=== PATIENT | female | born 1965 ===

== ENCOUNTER 2025-06-28 06:50 | Emergency (ER) | payer OTHER, SELFPAY ==
[2025-06-28 07:35] VITALS: BP 140/85; PULSE 66; RESP 20; TEMP 36.6; O2SAT 95; BMI 34.9
[2025-06-28 07:42] VITALS: BP 140/85; PULSE 66; RESP 20; TEMP 36.6; O2SAT 95
--- NOTE | 2025-06-28 07:43 | PC.NURSE ---
Patient presents to ED c/o of feeling unbalanced being lightheaded on postural changes but still feels it at rest. Patient reports hitting head on car pillar about a week ago. Denies LOC, dizziness, pain, vision changes, SOB, recent illness. Patient hit right parietal lobe on head no deformoty noted no bruising noted, no tenderness. Denies thinners. at bedside. VSS. Provider in to see patient. Plan of care on going
[2025-06-28 08:09] LABS: MANUAL DIFF FLAG NO
[2025-06-28 08:19] LABS: Hematocrit 42.9 % (37.0-47.0); Hemoglobin 15.2 g/dl (12.0-16.0); Imm Gran Abs Auto 0.02 X10*3/uL (0.00-0.03); Imm Gran Pct Auto 0.3 % (0.0-0.4); Lymphocytes Absolute Auto 1.1 X10*3/uL (1.2-4.9); Mean Corpuscular HGB Conc 35.4 g/dl (31.0-35.0); Mean Corpuscular Hemoglobin 30.0 pg (27.0-33.0); Mean Corpuscular Volume 84.6 fL (80.0-98.0); NRBC Abs Auto 0.000 X10*3/uL (0.0-0.012); NRBC Pct Auto 0.0 /100WBC (0.0-0.2); Platelet Count 183 X10*3/uL (160-400); Red Blood Count 5.07 X10*6/uL (4.20-5.50); White Blood Count 6.2 X10*3/uL (4.8-10.8)
[2025-06-28 08:37] LABS: Troponin-I High Sensitivity < 2.7 ng/L (<3.5-17.0)
--- NOTE | 2025-06-28 08:46 | ED_ITS ---
HPI - General Adult General Chief complaint: General Medical Stated complaint: off balance Time Seen by Provider: 06/28/25 07:05 Source: patient Mode of arrival: ambulatory Limitations: no limitations History of Present Illness ED Provider: HPI narrative: 59-year-old woman, remote history of vertigo for the past 4 or 5 days has not been feeling herself, fuzzy head, nausea, feeling unsteady, no chest pain or shortness of breath no abdominal pain, no fevers or chills no dysuria, no rectal bleeding. No weakness in upper or lower extremities, no sensory deficits. No vision changes Related Data Previous Rx's ?Medication ?Instructions ?Recorded meclizine 25 mg tablet 25 mg PO Q6-8H PRN dizziness 3 06/28/25 days #14 tabs ondansetron 4 mg disintegrating 4 mg PO Q8H PRN nausea and 06/28/25 tablet vomiting #4 tabs scopolamine base 1 mg over 3 days 1 patch transdermal Q3D PRN 06/28/25 transdermal patch vertigo 7 days #4 ea Allergies Allergy/AdvReac Type Severity Reaction Status Date / Time sulfamethoxazole (From Allergy Anxiety Verified 06/28/25 07:36 Bactrim) trimethoprim (From Bactrim) Allergy Anxiety Verified 06/28/25 07:34 Review of Systems 2 Constitutional: Constitutional: Reports as per [facility] Social History Social History Smoked in Last 30 Days: No Use of substances other than those prescribed or required for medical reasons: No Advance Directives: No Advance Directives Information Provided: Yes Do you have a plan to hurt others: No Plan Patient : No Physical Exam ED Vital Signs: Vital Signs - 24 hr 06/28/25 07:35 06/28/25 07:42 06/28/25 08:54 Temperature 97.8 F 97.8 F 97.7 F Pulse Rate 66 66 82 Respiratory Rate 20 20 16 Blood Pressure 140/85 H 140/85 H 139/92 H Pulse Oximetry 95 95 98 Oxygen Delivery Method Room Air Room Air BMI result Body Mass Index 34.9 Const Other: * Gen: ?Overall well-appearing patient * HEENT: PERRLA, EOMI, MMM, no ear impaction * Neck: Supple, no LAD * CV: RRR, no obvious murmurs appreciated * Resp: ?No wheezing rales rhonchi no stridor moving air well * Abd: ?Bowel sounds are present, no tenderness no rebound no rigidity * MSK: FROM, strength 5/5 all extremities * Skin: Warm, dry, intact, * Neuro: ?Alert and oriented x3, moving upper and lower extremities symmetrically, no obvious facial asymmetry noted, right-sided horizontal nystagmus without rotary or vertical component, no dysmetria upper or lower extremities Medications Administered Discontinued Medications Generic Name Dose Route Start Last Admin Trade Name Trino PRN Reason Stop Dose Admin Diazepam 2 mg 06/28/25 07:38 06/28/25 08:57 Diazepam 2 Mg Tablet PO 06/28/25 07:39 2 mg ONCE ONE Administration Sodium Chloride 1,000 mls @ 999 mls/hr 06/28/25 07:45 06/28/25 08:01 Ns IV 06/28/25 08:45 999 mls/hr .Q1H1M PRAFUL Administration Meclizine HCl 25 mg 06/28/25 07:38 06/28/25 08:57 Meclizine Hcl 25 Mg Tablet PO 06/28/25 07:39 25 mg ONCE ONE Administration Ondansetron HCl 4 mg 06/28/25 07:38 06/28/25 08:57 Ondansetron Hcl 4 Mg/2 Ml Vial IVPUSH 06/28/25 07:39 4 mg ONCE ONE Administration Scopolamine 1.5 mg 06/28/25 07:38 06/28/25 08:57 Scopolamine 1.5 Mg Patch.Td.3 EAR-BEHIND 06/28/25 07:39 1.5 mg ONCE ONE Administration Medical Decision Making Medical Decision Making [facility] Narrative: No evidence that patient is presenting with cerebellar stroke, right-sided nystagmus is noted, we will make sure to workup for cardiac issues as can be quite a typical presentation in females, we will obtain EKG and troponin, we will medicate we will re-evaluate, disposition to be determined 10:00 patient re-evaluated, she is feeling better we will the planning for discharge Differential Diagnosis Differential Diagnoses: The differential diagnosis associated with the presentation includes (Cerebellar stroke, BPPV, ACS, dehydration, electrolyte derangements) Admission/Observation Consideration of admission/observation: Escalation of care including admission/observation considered 2022 Emergency Medicine Coding Guide from [employer] on 06/28/2025 All calculations should be rechecked by clinician prior to use RESULT SUMMARY: 5 Estimated Level of Service Problems: Moderate (4) Risk: High (5) Data: Extensive (5) NARRATIVE MDM: This patient's problem complexity is Moderate as patient: with chronic illness(es) with exacerbation/progression/side effects of treatment. This patient's risk is High due to: overall presentation requiring evaluation for a potentially High-risk process. This patient's data complexity is Extensive due to: -multiple tests ordered -independent interpretation of imaging or EKG INPUTS: Number and Complexity ?> 3 = 4: chronic illness with exacerbation (c) Risk level ?> 4 = High Tests ordered ?> 2 = 2 Tests results reviewed (excluding labs) ?> 1 = 1 Prior external notes reviewed ?> 0 = 0 Assessment requiring and independent historian ?> 0 = No Independent interpretation of tests ?> 1 = Yes Discussed management/test interpretation w/external professional ?> 0 = No Lab Data MDM Lab Attestation statement: I reviewed the patient's lab results. 06/28/25 08:00 06/28/25 09:07 Labs: Lab Results 06/28/25 06/28/25 06/28/25 Range/Units 07:59 08:00 09:07 WBC 6.2 (4.8-10.8) X10*3/uL RBC 5.07 (4.20-5.50) X10*6/uL Hgb 15.2 (12.0-16.0) g/dl Hct 42.9 (37.0-47.0) % MCV 84.6 (80.0-98.0) fL MCH 30.0 (27.0-33.0) pg MCHC 35.4 H (31.0-35.0) g/dl RDW 12.3 (11.0-16.0) % Plt Count 183 (160-400) X10*3/uL MPV 9.7 (9.4-12.3) fL Immature Gran % (Auto) 0.3 (0.0-0.4) % Neut % (Auto) 75.7 H (45-73) % Lymph % (Auto) 17.2 L (20-40) % [place] % (Auto) 5.7 (2-11) % Eos % (Auto) 0.6 (0-4) % Baso % (Auto) 0.5 (0-2) % Lymph # (Auto) 1.1 L (1.2-4.9) X10*3/uL [place] # (Auto) 0.4 (0.1-1.2) X10*3/uL Eos # (Auto) 0.0 (0.0-0.4) X10*3/uL Baso # (Auto) 0.0 (0.0-0.2) X10*3/uL Abs Immat Gran (auto) 0.02 (0.00-0.03) X10*3/uL Absolute Neuts (auto) 4.7 (2.0-8.3) x10*3/uL Absolute Nucleated RBC 0.000 (0.0-0.012) X10*3/uL Nucleated RBC % (auto) 0.0 (0.0-0.2) /100WBC Sodium 142 (135-145) mmol/L Potassium 4.0 (3.3-5.1) mmol/L Chloride 110 H (96-108) mmol/L Carbon Dioxide 24 (22-29) mmol/L Anion Gap 12 (12-20) BUN 16 (9-16) mg/dL Creatinine 0.69 (0.5-1.4) mg/dL Estim Creat Clear Calc 100.1 Estimated GFR > 60 Random Glucose 100 (60-115) mg/dL Calcium 8.8 (8.4-10.2) mg/dL Total Bilirubin 1.1 H (0.0-1.0) mg/dL AST 28 (5-31) U/L ALT 28 (0-31) U/L Alkaline Phosphatase 50 (39-117) U/L Troponin I High Sens < 2.7 (<3.5-17.0) ng/L Total Protein 6.8 (6.5-8.0) g/dL Albumin 4.2 (3.5-5.0) g/dL Tests considered The following testing was considered but not selected: CT brain Discharge Plan Discharge Clinical Impression: Benign paroxysmal positional vertigo of right ear Patient Disposition: Home, Self-Care Instructions: Vertigo (ED) Additional Instructions: Your examination is consistent with vertigo, your workup included EKG, blood work, physical examination, vital signs all of which has been reassuring Continue with meclizine as needed, scopolamine is a patch keep it in place for 3 days Follow up with the PCP Any other issues concerns come back to the ER Zofran as needed for nausea and vomiting Prescriptions: New meclizine 25 mg tablet 25 mg PO Q6-8H PRN (Reason: dizziness) 3 Days Qty: 14 0RF ondansetron 4 mg tablet,disintegrating 4 mg PO Q8H PRN (Reason: nausea and vomiting) Qty: 4 0RF scopolamine base 1 mg over 3 days patch 3 day 1 patch transdermal Q3D PRN (Reason: vertigo) 7 Days Qty: 4 0RF Print Language: French
[2025-06-28 08:54] VITALS: BP 139/92; PULSE 82; RESP 16; TEMP 36.5; O2SAT 98
--- OUTSIDE RECORDS SUMMARY | 2025-06-28 09:28 | XMS_ITS | Clinical Summary ---
Author Organization [facility] Address [address] [place] [phone] Phone Care Team Providers Care Apprentice/Lineman Name Role Phone Mason Lucas MD Primary Care Provide r Allergies Active Allergy Reactions Criticality Noted Date Comments Sulfamethoxazole-Trimethoprim Anxiety Low 2021 Other Itching 08/08/2022 Powder in gloves Medications atorvastatin (LIPITOR) 20 MG tablet Take 20 mg by mouth daily. Active levothyroxine (SYNTHROID, LEVOTHROID) 125 MCG tablet Take 125 mcg by mouth every morning. Active cyanocobalamin, vitamin B-12, 1000 MCG tablet Take 1,000 mcg by mouth daily. Active cholecalciferol (VITAMIN D3) 25 MCG (1,000 unit) tablet Take 1,000 Units by mouth daily. Active psyllium (METAMUCIL) Powd Take 1 teaspoonful by mouth daily. 3 g = 1 teaspoonful (5 mL) Active Social History Tobacco Use Types Packs/Day Years Used Date Smoking Tobacco: Former Cigarettes Smokeless Tobacco: Never Comments:quit smoking 16 yrs ago Alcohol Use Standard Drinks/Week Comments Yes 0 (1 standard drink = 0.6 oz pur e alcohol) rarely Education Answer Date Recorded Are you interested in more education? Not on barney e 03/28/2023 Are you concerned about learning? Not on file 03/28/2023 No 03/28/2023 No 03/28/2023 Digital Access Answer Date Recorded No 04/26/2023 No 04/26/2023 No 04/26/2023 Reliable internet access at home? Not on file 04/26/2023 Device with a working camera? Not on file Comments No Sex and Gender Information Value Date Recorded Sex Assigned at Not on file Legal Sex Female 2:39 PM EDT Gender Identity Not on file Sexual Orientation Not on file Last Filed Vital Signs Vital Sign Reading Time Taken Comments Blood Pressure 129/90 08/11/2022 12:10 PM EDT Pulse 60 08/11/2022 12:10 PM EDT Temperature 35.9 C (96.7 F) 08/11/2022 11:55 AM EDT Respiratory Rate 16 08/11/2022 10:33 AM EDT Oxygen Saturation 99% 08/11/2022 12:10 PM EDT Inhaled Oxygen Concentration - - Weight 94.3 kg (208 lb) 08/08/2022 3:11 PM EDT Height 167.6 cm (5' 6 ) 08/08/2022 3:11 PM EDT Body Mass Index 33.57 08/08/2022 3:11 PM EDT Plan of Treatment Health Maintenance Due Date Last Done Comments LIPID PANEL 1965 TSH LEVEL 1965 DEPRESSION SCREENING 1977 SMOKING Hx and SMOKELESS TOBACCO SCREENING 1978 HEPATITIS C SCREENING 1983 HIV ONE-TIME SCREENING (18-6 5 YEARS) 1983 PAP SMEAR 1986 SCREENING FOR DIABETES 2000 MAMMOGRAM 2005 COLOGUARD 2010 COLONOSCOPY 2010 COLORECTAL CANCER SCREENING 2010 FIT TEST 2010 FOBT 2010 SIGMOIDOSCOPY 2010 VIRTUAL COLONOSCOPY 2010 PNEUMOCOCCAL VACCINES (50+ years) (1 of 1 - PCV) 2015 ZOSTER VACCINES (1 of 2) 2015 COVID-19 VACCINE (3 - 2023-2 5 season) 2024 05/11/2021, 04/13/2021 Adult Td,Tdap Booster 02/05/2031 02/05/2021 , 11/04/2000 HEPATITIS A VACCINES Aged Out No long er eligible based on patient's age to complete this topic HIB VACCINES Aged Out No longer eligi ble based on patient's age to complete this topic MENINGOCOCCAL VACCINES (ACWY) Aged Out No longer eligible based on patient's age to complete this topic MENINGOCOCCAL VACCINES (B) Aged Out N o longer eligible based on patient's age to complete this topic Medical Devices Not on file Insurance [place] [address] [address] [place], [place] [id number] [place] [address] HMO O O Care Teams Apprentice/Lineman Relationship Specialty Start Date End Date Mason Lucas MD [address] [place] [id number] PCP - General Internal Medicine 07/10/22 Additional Source Comments The information contained in this document represents components of the legal health record. It is not the complete legal health record.[facility]
--- OUTSIDE RECORDS SUMMARY | 2025-06-28 09:29 | XMS_ITS | Patient Health Record ---
Author Organization [facility] Address [address] [place] [address] Care Team Providers Care Pharmacist Critical Care Name Role Phone Lance FLOR, Mason Primary Care Provider Victor M MoodyMjen Unavailable [phone] Allergies Allergen (clinical drug ingredient) Drug/Non Drug Allergy documented on EMR Reaction Allergy Type Onset Date Status sulfa anxiety Drug Allergy Active Latex ? Drug Allergy Active Reason For Referral No Information Medications Medication SIG (Take, Route, Frequency, Duration) Notes Start Date End Date Status Metamucil Active Atorvastatin Calcium 40 MG 1 tablet Oral ly Once a day; Duration: 30 day(s) Active Nightsplint . . . AFO - L1930; Duration: . Active Aspirin 81 MG 1 tablet Orally Once a day; Duration: 30 day(s) Active Piroxicam 20 MG 1 capsule with food Orally Once a day; Duration: 30 day(s) 09/14/2014 Unknown Vitamin B-12 1000 MCG Orally Active Physical Therapy 2x per week for 3-4 weeks 07/26/2019 Active Vitamin D 5000 twice a week Ac tive Levothyroxine Sodium 125 MCG Orally Active Social History Alcohol Screen Question Answer Notes Did you have a drink containing alcohol in the p ast year? Yes Points 0 Interpretation Negative Tobacco use other than smoking: Question Answer Notes Are you an other tobacco user? No Problems Problem Type SNOMED Code ICD Code Onset Dates Problem Status W/U Status Risk Notes Problem Localized, primary osteoarthritis of the ankle and/or foot (248253666) Osteoarthritis of right ankle and foot (M19.071) Active confirmed Problem Localized, primary osteoarthritis of the ankle and/or foot (122706895) Osteoarthritis of left ankle and foot (M19.072) Active confirmed Plan Of Treatment Pending Test Test Name Order Date X ray : Foot, left 2V 09/14/2014 X ray : Foot, right 2V 07/03/2016 X ray : Foot, right 2V 09/14/2014 X ray : Foot, left 3V 07/26/2019 [id number] TENDON SHEATH/LIGAMENT 0 07/03/[id number] TENDON SHEATH/LIGAMENT 1 Insurance Providers Payer Name Payer Address Payer Phone Subscriber Number Group Number Insured Name Patient Relationship to Insured Coverage Start Date Coverage End Date [facility] [address] [place] [address] [id number] Ramses Strickland Spouse - patient is the spouse of the insured Medical (General) History Medical History History ICD Code Anemia Arthritis Headaches Thyroid disorder Chicken pox Anxiety Reflux ( GERD) thyroid Surgical History Surgery Date(Month/Year) tubal ligation cholecystectomy 2013
[2025-06-28 09:35] LABS: Alanine Aminotransferase 28 U/L (0-31); Albumin Level 4.2 g/dL (3.5-5.0); Alkaline Phosphatase 50 U/L (39-117); Anion Gap 12 (12-20); Aspartate Amino Transferase 28 U/L (5-31); Blood Urea Nitrogen 16 mg/dL (9-16); Calcium 8.8 mg/dL (8.4-10.2); Carbon Dioxide 24 mmol/L (22-29); Chloride 110 mmol/L (96-108); Creatinine Clr Calc Pharmacy 100.1; Estimated Glomerular Filt Rate > 60; Potassium 4.0 mmol/L (3.3-5.1); Sodium 142 mmol/L (135-145); Total Protein 6.8 g/dL (6.5-8.0)
[2025-06-28 10:26] VITALS: BP 120/68; PULSE 64; RESP 14; TEMP 36.8; O2SAT 99
== END 2025-06-28 10:34 | disposition home or self-care (01) ==
PROVIDERS: Emergency Provider Emergency Medicine; PCP Nurse Practitioner Family
DX: H81.10 Benign paroxysmal vertigo, unspecified ear (principal); R11.0 Nausea
CPT/HCPCS: 36415; 80053; 84484; 85025; 96361; 96374; 99284; 99285; J2405